=== PATIENT | female | born 1960 | race African-American/Black ===

== ENCOUNTER 2018-06-29 08:38 | Day surgery (SDC) | payer BC ==
[~2018-06-29] VITALS: Ht 170.2 cm; Wt 113.4 kg
[~2018-06-29 08:38] MED LIST: ALTACE10 MG PO; ALTACE2.5 M1 OR; AUGMENTIN OR; CALCIUM600 M1 OR; CALCIUM600 M1 PO; CENTRUM PO; FENOFIBRATE145 MG PO; FENOFIBRATE160 MG PO; GABAPENTIN300 MG PO; HYDRALAZINE25 MG PO; KLOR-CON M2020 MEQ PO; LASIX 20 MG TAB20 MG PO; LASIX 40 MG TAB40 MG PO; LOPRESSOR 550 MG/TAB PO; LYRICA50 MG PO; LYRICA75 MG PO; METOPROL TAR100 MG PO; MIRAPEX0.5 MG PO; MULTI VIT PO; TIZANIDINE4 MG PO; TRAMADOL HCL50 MG PO; TRICOR145 MG PO; VERAMYST27.5 MCG; VITAMIN D400 UNI1 PO; VITAMIN D400 UNI2 OR; ZYRTEC-D AL1 OR
[2018-06-29 11:30] VITALS: BP 111/78
== END 2018-06-29 11:42 | disposition home or self-care (01) | DRG 392 ==
LOC: ENDO 08:38
PROVIDERS: ATTEND Internal Medicine Gastroenterology
PROC: 0DJD8ZZ Inspection of Lower Intestinal Tract, Via Natural or Artificial Opening Endoscopic (ICD-10-PCS; principal; 2018-06-29)
DX: K59.00 Constipation, unspecified (principal); K64.4 Residual hemorrhoidal skin tags; K64.8 Other hemorrhoids; I10 Essential (primary) hypertension

== ENCOUNTER 2018-07-20 10:00 | Outpatient (RCR) | payer BC | END 2018-07-20 11:00 | disposition home or self-care (01) | DRG 552 | LOC: PT 10:00 | PROVIDERS: ATTEND Internal Medicine Geriatric Medicine | DX: M48.061 Spinal stenosis, lumbar region without neurogenic claudication (principal); M54.5 Low back pain ==

== ENCOUNTER 2021-03-29 19:48 | Emergency (ER) | payer BC ==
[~2021-03-29] VITALS: Ht 170.2 cm; Wt 114.0 kg
[~2021-03-29 19:48] MED LIST changes: -CENTRUM PO; +CENTRUM SILVER PO
[2021-03-29 20:41] LABS: MEAN CORPUSCULAR HGB 27.7 pG CALC (26.0-32.0); MEAN CORPUSCULAR HGB CONC 31.4 g/dL CAL (32.0-36.0); NEUT# 5.6 thou/uL (2.00-7.15); RED BLOOD COUNT 5.17 mill/uL (4.20-5.60); RED CELL DISTRI WIDTH 13.2 % (11.5-15.5)
[2021-03-29 20:42] LABS: HEMATOCRIT 45.5 % (37.0-47.0); HEMOGLOBIN 14.3 g/dl (12.0-16.0)
[2021-03-29 20:55] LABS: ACT PARTIAL THROMBO TIME 20.9 SECONDS (20.0-32.5); PROTHROMBIN TIME 10.2 SECONDS (9.0-12.5)
[2021-03-29 20:56] LABS: ANION GAP 10 (6-22 (CALC)); BILIRUBIN, TOTAL 0.4 mg/dL (0.0-1.4); BUN 13 mg/dL (8-23); BUN/CREATININE RATIO 18 (12-20 (CALC)); CARBON DIOXIDE 28 mmol/l (22-30); CHLORIDE 107 mmol/l (95-108); CREATININE 0.7 mg/dL (0.5-1.0); GFR > 60 ML/MIN (>=60 (CALC)); GFR FOR AFR.AMER. > 60 ML/MIN (>=60 (CALC)); MAGNESIUM 1.8 mg/dL (1.6-2.3); POTASSIUM 3.9 mmol/l (3.5-5.1); SGOT/AST 25 u/l (9-36); SODIUM 141 mmol/l (137-146); TOTAL PROTEIN 7.6 g/dL (6.3-8.2)
[2021-03-29 20:58] LABS: ALBUMIN 4.1 g/dL (3.2-5.0); ALKALINE PHOSPHATASE 84 u/l (38-126)
[2021-03-29 21:08] LABS: MYOGLOBIN 23 ng/mL (0 - 62)
[2021-03-29 21:27] LABS: TSH, 3RD GENERATION 2.09 uIU/mL (0.47 - 4.68)
[2021-03-30 00:24] LABS: URINE BILIRUBIN - DIPSTICK NEGATIVE (NEGATIVE); URINE BLOOD DIPSTICK NEGATIVE (NEGATIVE); URINE COLOR YELLOW; URINE GLUCOSE - DIPSTICK NEGATIVE (NEGATIVE); URINE KETONE NEGATIVE (NEGATIVE); URINE LEUK ESTERASE NEGATIVE (NEGATIVE); URINE PROTEIN - DIPSTICK 100 mg/dL (NEG-TRACE)
[2021-03-30 00:28] LABS: URINE NITRITE - DIPSTICK NEGATIVE (Negative)
[2021-03-30 00:29] LABS: URINE SQUAMOUS EPITHELIAL CELL MANY EPI/hpf (0-FEW)
[2021-03-30 00:30] LABS: URINE BACTERIA MANY hpf
[2021-03-30] MEDS ORDERED: MECLIZINE25 MG PO ×2 (01:18→02:05)
[2021-03-30 01:35] VITALS: BP 120/76
== END 2021-03-30 02:22 | disposition home or self-care (01) | DRG 149 ==
LOC: ED 19:48
PROVIDERS: Family Medicine
DX: R42 Dizziness and giddiness (principal); I10 Essential (primary) hypertension

== ENCOUNTER 2024-04-30 02:05 | Emergency (ER) | payer MEDICARE, OTHER ==
[~2024-04-30] VITALS: Ht 170.2 cm; Wt 123.0 kg
[2024-04-30] VITALS (11 sets, daily range): BP systolic 146–184; BP diastolic 93–112
[~2024-04-30 02:05] MED LIST changes: +MAXZIDE-25MG1 COMBO PO; +MECLIZINE25 MG PO
[2024-04-30] MEDS ORDERED: methylPREDNISolone SODIUM SUCC 125 MG/2 ML SDV IV STA (02:12)
[2024-04-30] MEDS ORDERED: FAMOTIDINE 10MG/ML 2ML SDV IV STA (02:12)
[2024-04-30] MEDS ORDERED: EPINEPHrine HCL 1 MG/ML AMP IM STA (02:12)
[2024-04-30] MEDS ORDERED: DiphenhydrAMINE HCL 50 MG/ML SDV IV STA (02:12)
== END 2024-04-30 05:15 | disposition home or self-care (01) ==
LOC: ED 02:05
DX: T78.3XXA Angioneurotic edema, initial encounter (principal); T44.5X5A Adverse effect of predominantly beta-adrenoreceptor agonists, initial encounter; I10 Essential (primary) hypertension; E78.00 Pure hypercholesterolemia, unspecified